=== PATIENT | male | born 1970 | race Hispanic/Latino ===

== ENCOUNTER 2025-02-07 11:40 | Inpatient (IN) | payer OTHER ==
[2025-02-07 12:53] LABS: #Basophils Less than 0.03 10x3/uL (0.0-0.2); #Eosinophils 0.05 10x3/uL (0.0-0.7); #Monocytes 0.46 10x3/uL (0.11-0.59); #Neutrophils 7.92 10x3/uL (1.40-6.50); %Basophils 0.1 % (0.0-1.0); %Eosinophils 0.5 % (0.0-10.0); %Lymphocytes 10.3 % (21.0-51.0); %Monocytes 4.9 % (0.0-10.0); %Neutrophils 83.7 % (42.0-75.0); Hematocrit 29.9 % (42.0-52.0); Hemoglobin 9.0 g/dL (14.0-18.0); Mean Corpuscular Hemoglobin 25.4 pg (27.0-31.0); Mean Corpuscular Volume 84.2 fL (78.0-98.0); Platelet Count 264 10x3/uL (130-400); Red Blood Cell (RBC) Count 3.55 mill/uL (4.70-6.10); White Blood Cell (WBC) Count 9.46 10x3/uL (4.8-10.8)
[2025-02-07 13:17] LABS: Lipase 67 U/L (8-78); Magnesium 2.3 mg/dL (1.6-2.6)
[2025-02-07 13:18] LABS: Acetaminophen Less than 10 mcg/mL (Less than 10); Salicylate Less than 8.0 mg/dL (Less than 8.0)
[2025-02-07 13:19] LABS: ALT (SGPT) 13 U/L (Less than 45); AST (SGOT) 20 U/L (11-34); Albumin 3.6 g/dL (3.1-4.5); Alkaline Phosphatase 75 U/L (40-110); Anion Gap 22 mmol/L (10-20); BUN (Urea Nitrogen) 49 mg/dL (8.4-25.7); Bilirubin, Total 0.3 mg/dL (0.3-1.2); CK (CPK) 197 U/L (30-200); Calc. Creatinine Clearance 0 mL/min (70-130); Calcium 7.8 mg/dL (7.8-10.44); Carbon Dioxide 12 mmol/L (22-29); Chloride 106 mmol/L (98-107); Globulin 2.4 g/dL (2.4-3.5); Glucose 139 mg/dL (70-105); Potassium 4.7 mmol/L (3.5-5.1); Sodium 135 mmol/L (136-145)
[2025-02-07] MEDS ORDERED: Senokot S 8.6-50 MG TAB PO PRN (14:08)
[2025-02-07] MEDS ORDERED: Ondansetron PF 4 MG/2 ML Vial IVP PRN (14:08)
[2025-02-07] MEDS ORDERED: Ketorolac Tromethamine 30 MG (1 mL) VIAL IVP PRN (14:08)
[2025-02-07] MEDS ORDERED: Guaifenesin DM 100-10/5 ML UDCUP PO PRN (14:08)
[2025-02-07] MEDS ORDERED: Acetaminophen 325 MG TAB PO PRN (14:08)
[2025-02-07] MEDS ORDERED: Electrolyte Replacement Protocol 1 EACH FS SCH (14:15)
[2025-02-07 16:58] LABS: INR-International Normal Ratio 1.1; PTT 29.9 sec (22.9-36.1); Prothrombin Time 14.2 sec (12.0-14.7)
[2025-02-07 17:22] LABS: Bilirubin, Direct 0.1 mg/dL (0.1-0.3); Magnesium 2.4 mg/dL (1.6-2.6)
[2025-02-07] MEDS: Cephalexin 250 MG CAP PO SCH (17:40)
[2025-02-07] MEDS: Furosemide 40 MG TAB PO SCH (20:59)
[2025-02-07] MEDS: Apixaban 5 MG TAB PO SCH (20:59)
[2025-02-07] MEDS: Famotidine/PF 20 mg/2ml Vial SLOW IVP SCH (20:59)
[2025-02-07] MEDS: Gabapentin 100 MG CAP PO SCH (20:59)
[2025-02-07] MEDS: Sacubitril 24MG/Valsartan 26 MG TAB PO SCH (21:00)
[2025-02-07 21:30] LABS: Cocaine Metabolite Screen Negative (Negative); THC/Cannabinoid Screen Negative (Negative); Tricyclic Screen Negative (Negative)
[2025-02-08 04:46] LABS: #Basophils Less than 0.03 10x3/uL (0.0-0.2); #Eosinophils 0.07 10x3/uL (0.0-0.7); #Monocytes 0.80 10x3/uL (0.11-0.59); #Neutrophils 5.85 10x3/uL (1.40-6.50); %Basophils 0.3 % (0.0-1.0); %Eosinophils 0.9 % (0.0-10.0); %Lymphocytes 9.7 % (21.0-51.0); %Monocytes 10.7 % (0.0-10.0); %Neutrophils 77.9 % (42.0-75.0); Hematocrit 31.0 % (42.0-52.0); Hemoglobin 9.5 g/dL (14.0-18.0); Mean Corpuscular Hemoglobin 25.5 pg (27.0-31.0); Mean Corpuscular Volume 83.1 fL (78.0-98.0); Platelet Count 262 10x3/uL (130-400); Red Blood Cell (RBC) Count 3.73 mill/uL (4.70-6.10); White Blood Cell (WBC) Count 7.51 10x3/uL (4.8-10.8)
[2025-02-08 05:08] LABS: ALT (SGPT) 27 U/L (Less than 45); AST (SGOT) 48 U/L (11-34); Albumin 3.7 g/dL (3.1-4.5); Alkaline Phosphatase 80 U/L (40-110); Anion Gap 16 mmol/L (10-20); BUN (Urea Nitrogen) 31 mg/dL (8.4-25.7); Bilirubin, Total 0.6 mg/dL (0.3-1.2); Calc. Creatinine Clearance 105 mL/min (70-130); Calcium 8.2 mg/dL (7.8-10.44); Carbon Dioxide 19 mmol/L (22-29); Cardiac Risk 2.9 (Less than 4.5); Chloride 111 mmol/L (98-107); Cholesterol 84 mg/dl (< 200 Desired); Globulin 2.7 g/dL (2.4-3.5); Glucose 135 mg/dL (70-105); HDL Cholesterol 29 mg/dL (>60 Neg Risk); LDL Cholesterol, Calculated 40 mg/dL; Potassium 4.6 mmol/L (3.5-5.1); Sodium 141 mmol/L (136-145); Triglycerides 77 mg/dL (Less than 150)
[2025-02-08] MEDS: Metoprolol Succinate XL 25 MG ER.TAB PO SCH (08:04)
[2025-02-08] MEDS: Folic Acid 1 MG TAB PO SCH (08:05)
[2025-02-08] MEDS: Enoxaparin 100 MG (1 mL) SYRINGE SC SCH (08:05)
[2025-02-08] MEDS: Dapagliflozin Propanediol 10 MG TAB PO SCH (08:05)
[2025-02-08] MEDS: Multivit, Therapeutic 1 TAB PO SCH (08:05)
[2025-02-08] MEDS: Famotidine/PF 20 mg/2ml Vial SLOW IVP SCH (08:06)
[2025-02-08] MEDS: Aspirin Chewable 81 MG TAB PO SCH (08:06)
[2025-02-08] MEDS ORDERED: Enoxaparin 40 MG (0.4 mL) SYRINGE SC SCH (09:00)
[2025-02-08] MEDS ORDERED: CATH FS PRN (14:15)
[2025-02-09 04:52] LABS: #Basophils 0.04 10x3/uL (0.0-0.2); #Eosinophils 0.18 10x3/uL (0.0-0.7); #Monocytes 0.78 10x3/uL (0.11-0.59); #Neutrophils 4.44 10x3/uL (1.40-6.50); %Basophils 0.6 % (0.0-1.0); %Eosinophils 2.7 % (0.0-10.0); %Lymphocytes 16.8 % (21.0-51.0); %Monocytes 11.9 % (0.0-10.0); %Neutrophils 67.7 % (42.0-75.0); Hematocrit 32.6 % (42.0-52.0); Hemoglobin 10.1 g/dL (14.0-18.0); Mean Corpuscular Hemoglobin 25.0 pg (27.0-31.0); Mean Corpuscular Volume 80.7 fL (78.0-98.0); Platelet Count 258 10x3/uL (130-400); Red Blood Cell (RBC) Count 4.04 mill/uL (4.70-6.10); White Blood Cell (WBC) Count 6.56 10x3/uL (4.8-10.8)
[2025-02-09 05:06] LABS: ALT (SGPT) 26 U/L (Less than 45); AST (SGOT) 36 U/L (11-34); Albumin 3.6 g/dL (3.1-4.5); Alkaline Phosphatase 89 U/L (40-110); Anion Gap 15 mmol/L (10-20); BUN (Urea Nitrogen) 17 mg/dL (8.4-25.7); Bilirubin, Total 0.6 mg/dL (0.3-1.2); Calc. Creatinine Clearance 131 mL/min (70-130); Calcium 8.7 mg/dL (7.8-10.44); Carbon Dioxide 24 mmol/L (22-29); Chloride 106 mmol/L (98-107); Globulin 3.0 g/dL (2.4-3.5); Glucose 143 mg/dL (70-105); Potassium 3.8 mmol/L (3.5-5.1); Sodium 141 mmol/L (136-145)
[2025-02-09 06:10] VITALS: BMI 30.3
[2025-02-09] MEDS ORDERED: Adenosine 6 mg (2 mL) VIAL ONE ×2 (08:46→11:05)
[2025-02-09] MEDS ORDERED: Lidocaine 1% (PF) 30 ML VIAL ONE ×2 (08:46→11:06)
[2025-02-09] MEDS ORDERED: EPINEPHrine 1 MG/10 ML Abboject SYRINGE ONE (08:46)
[2025-02-09] MEDS ORDERED: Heparin 10,000 UNITS/ 10 ML VIAL ONE ×2 (08:46→11:06)
[2025-02-09] MEDS ORDERED: PHENYLEPHRINE-NS 100 MCG/ML 10 ML SYRINGE ONE ×2 (08:47→11:07)
[2025-02-09] MEDS ORDERED: Nitroglycerin 50 MG/250 ML BOT 0 ML ONE (08:47)
[2025-02-09] MEDS ORDERED: Nitroglycerin 50 MG/250 ML BOT 250 ML ONE (11:06)
[2025-02-09] MEDS ORDERED: Iopamidol 370 76% 100 ML VIAL ONE (11:11)
[2025-02-09] MEDS ORDERED: Nitroglycerin 0.4 MG TAB (25 Tab Bottle) SL PRN (12:42)
[2025-02-09 14:45] VITALS: BMI 30.3
[2025-02-09 16:32] VITALS: BP 144/80; TEMP 97.5
[2025-02-10] MEDS ORDERED: Thiamine 100 MG TAB PO SCH (21:00)
== END 2025-02-09 18:30 | disposition home or self-care (01) | DRG 896 ==
LOC: ERS 11:40 → 2NO 14:14
PROVIDERS: ADMIT Hospitalist; ATTEND Internal Medicine
PROC: 4A023N7 Measurement of Cardiac Sampling and Pressure, Left Heart, Percutaneous Approach (ICD-10-PCS; principal; 2025-02-09)
PROC: B2151ZZ Fluoroscopy of Left Heart using Low Osmolar Contrast (ICD-10-PCS; 2025-02-09)
PROC: B2111ZZ Fluoroscopy of Multiple Coronary Arteries using Low Osmolar Contrast (ICD-10-PCS; 2025-02-09)
PROC: 3E033XZ Introduction of Vasopressor into Peripheral Vein, Percutaneous Approach (ICD-10-PCS; 2025-02-09)
DX: F10.129 Alcohol abuse with intoxication, unspecified (principal); G93.41 Metabolic encephalopathy; E87.20 Acidosis, unspecified; E87.29 Other acidosis; I13.0 Hypertensive heart and chronic kidney disease with heart failure and stage 1 through stage 4 chronic kidney disease, or unspecified chronic kidney disease; I50.32 Chronic diastolic (congestive) heart failure; N17.9 Acute kidney failure, unspecified; L03.116 Cellulitis of left lower limb; I42.9 Cardiomyopathy, unspecified; I48.91 Unspecified atrial fibrillation; E78.5 Hyperlipidemia, unspecified; E11.22 Type 2 diabetes mellitus with diabetic chronic kidney disease; N18.30 Chronic kidney disease, stage 3 unspecified; Y90.8 Blood alcohol level of 240 mg/100 ml or more; F32.9 Major depressive disorder, single episode, unspecified; Z90.49 Acquired absence of other specified parts of digestive tract; Z98.890 Other specified postprocedural states; Z86.73 Personal history of transient ischemic attack (TIA), and cerebral infarction without residual deficits; Z79.82 Long term (current) use of aspirin; Z79.899 Other long term (current) drug therapy; Z79.84 Long term (current) use of oral hypoglycemic drugs
CPT/HCPCS: 36415; 71045; 80053; 80061; 80306; 80307; 82248; 82550; 83036; 83605; 83690; 83735; 83880; 84100; 84443; 84484; 85025; 85610; 85730; 93005; 93306; 93458; 96361; 96374; 99152; C1769; C1894; J0153; J0165; J0461; J1644; J1650; J2060; J2250; J3010; J3411; J7030; Q9967

== ENCOUNTER 2025-03-02 18:11 | Inpatient (IN) | payer OTHER ==
[~2025-03-02 18:11] MED LIST: Iopamidol-370 76% 500 ML MDV (1 ML CHARGE) ONE
[2025-03-02 19:15] LABS: #Basophils Less than 0.03 10x3/uL (0.0-0.2); #Eosinophils 0.07 10x3/uL (0.0-0.7); #Monocytes 0.53 10x3/uL (0.11-0.59); #Neutrophils 8.50 10x3/uL (1.40-6.50); %Basophils 0.2 % (0.0-1.0); %Eosinophils 0.7 % (0.0-10.0); %Lymphocytes 7.8 % (21.0-51.0); %Monocytes 5.3 % (0.0-10.0); %Neutrophils 85.7 % (42.0-75.0); Hematocrit 26.5 % (42.0-52.0); Hemoglobin 7.9 g/dL (14.0-18.0); Mean Corpuscular Hemoglobin 23.9 pg (27.0-31.0); Mean Corpuscular Volume 80.3 fL (78.0-98.0); Platelet Count 302 10x3/uL (130-400); Red Blood Cell (RBC) Count 3.30 mill/uL (4.70-6.10); White Blood Cell (WBC) Count 9.92 10x3/uL (4.8-10.8)
[2025-03-02 19:33] LABS: Lipase 61 U/L (8-78)
[2025-03-02 19:35] LABS: ALT (SGPT) 17 U/L (Less than 45); AST (SGOT) 31 U/L (11-34); Acetaminophen Less than 10 mcg/mL (Less than 10); Albumin 3.1 g/dL (3.1-4.5); Alkaline Phosphatase 94 U/L (40-110); Anion Gap 22 mmol/L (10-20); BUN (Urea Nitrogen) 25 mg/dL (8.4-25.7); Bilirubin, Total 0.3 mg/dL (0.3-1.2); Calc. Creatinine Clearance 0 mL/min (70-130); Calcium 7.6 mg/dL (7.8-10.44); Carbon Dioxide 13 mmol/L (22-29); Chloride 102 mmol/L (98-107); Globulin 2.7 g/dL (2.4-3.5); Glucose 128 mg/dL (70-105); Potassium 4.1 mmol/L (3.5-5.1); Salicylate Less than 8.0 mg/dL (Less than 8.0); Sodium 133 mmol/L (136-145)
[2025-03-02 20:30] LABS: Actual Bicarbonate (HCO3v) 16.2 mEq/L (22-28); Base Excess -9.3 mEq/L (-2.0 to +3.0); Calcium, Ionized (venous) 1.08 mmol/L (1.16-1.32); Chloride (VBG) 100 mmol/L (98-106); Hematocrit-VBG 25 % (42.0-52.0); Hemoglobin (Hb) 8.6 g/dL (13.1-17.2); Potassium (VBG) 3.81 mmol/L (3.70-5.30); Sodium 132 mmol/L (133-146)
[2025-03-02 20:57] LABS: Bacteria/HPF None Seen HPF (None Seen); CAUTI Indications for Culture Alt mental st,lethar; Glucose, Urine (Dipstick) Greater than 1000 mg/dL (Negative); Leukocyte Negative Leu/uL (Negative); Protein, Urine (Dipstick) 10 mg/dL (Neg-Trace); RBC/HPF 0-3 HPF (0-3); Specific Gravity, Urine 1.014 (1.002-1.036); WBC/HPF 0-3 HPF (0-3)
[2025-03-02 20:58] LABS: Cocaine Metabolite Screen Negative (Negative); THC/Cannabinoid Screen Negative (Negative); Tricyclic Screen Negative (Negative); Urine Culture Reflex No No
[2025-03-03] MEDS ORDERED: Ondansetron PF 4 MG/2 ML Vial IVP PRN (00:16)
[2025-03-03] MEDS ORDERED: Calcium Carbonate 500 MG ChewTAB PO PRN (00:16)
[2025-03-03] MEDS ORDERED: Electrolyte Replacement Protocol 1 EACH FS SCH (00:30)
[2025-03-03] MEDS: FOLIC ACID IVP SCH (01:27)
[2025-03-03] MEDS: Vancomycin (BATCH) 2.5 GM in Premix 1 BAG IVPB SCH (01:27)
[2025-03-03] MEDS: PREFILLED IVP SCH (01:27)
[2025-03-03] MEDS ORDERED: Dextrose 50% Abboject 50 ML SYRINGE SLOW IVP PRN (02:37)
[2025-03-03] MEDS ORDERED: Glucagon 1 MG/ML KIT IM PRN (02:37)
[2025-03-03 03:53] LABS: #Basophils 0.03 10x3/uL (0.0-0.2); #Eosinophils 0.20 10x3/uL (0.0-0.7); #Monocytes 0.58 10x3/uL (0.11-0.59); #Neutrophils 5.64 10x3/uL (1.40-6.50); %Basophils 0.4 % (0.0-1.0); %Eosinophils 2.6 % (0.0-10.0); %Lymphocytes 14.3 % (21.0-51.0); %Monocytes 7.7 % (0.0-10.0); %Neutrophils 74.7 % (42.0-75.0); Hematocrit 29.5 % (42.0-52.0); Hemoglobin 8.6 g/dL (14.0-18.0); Mean Corpuscular Hemoglobin 23.9 pg (27.0-31.0); Mean Corpuscular Volume 81.9 fL (78.0-98.0); Platelet Count 307 10x3/uL (130-400); Red Blood Cell (RBC) Count 3.60 mill/uL (4.70-6.10); White Blood Cell (WBC) Count 7.55 10x3/uL (4.8-10.8)
[2025-03-03 04:27] LABS: ALT (SGPT) 16 U/L (Less than 45); AST (SGOT) 25 U/L (11-34); Albumin 3.2 g/dL (3.1-4.5); Alkaline Phosphatase 95 U/L (40-110); Anion Gap 19 mmol/L (10-20); BUN (Urea Nitrogen) 20 mg/dL (8.4-25.7); Bilirubin, Total 0.5 mg/dL (0.3-1.2); Calc. Creatinine Clearance 0 mL/min (70-130); Calcium 8.2 mg/dL (7.8-10.44); Carbon Dioxide 17 mmol/L (22-29); Chloride 108 mmol/L (98-107); Globulin 2.6 g/dL (2.4-3.5); Glucose 87 mg/dL (70-105); Potassium 4.5 mmol/L (3.5-5.1); Sodium 139 mmol/L (136-145)
[2025-03-03] MEDS: Multivit, Therapeutic 1 TAB PO SCH (08:11)
[2025-03-03] MEDS: Furosemide 40 MG TAB PO SCH (08:11)
[2025-03-03] MEDS: Aspirin Chewable 81 MG TAB PO SCH (08:11)
[2025-03-03] MEDS: Dapagliflozin Propanediol 10 MG TAB PO SCH (08:11)
[2025-03-03] MEDS: Folic Acid 1 MG TAB PO SCH (08:11)
[2025-03-03] MEDS: Sacubitril 24MG/Valsartan 26 MG TAB PO SCH (08:11)
[2025-03-03] MEDS: Thiamine 100 MG TAB PO SCH (08:12)
[2025-03-03] MEDS: Apixaban 5 MG TAB PO SCH (08:12)
[2025-03-03] MEDS: metFORMIN 850 MG TAB PO SCH (08:12)
[2025-03-03] MEDS: Metoprolol Succinate XL 25 MG ER.TAB PO SCH (08:12)
[2025-03-03] MEDS: Gabapentin 100 MG CAP PO SCH (08:12)
[2025-03-03] MEDS: Acetaminophen 325 MG TAB PO PRN (08:21)
[2025-03-03 14:29] LABS: Anion Gap 18 mmol/L (10-20); BUN (Urea Nitrogen) 18 mg/dL (8.4-25.7); Calc. Creatinine Clearance 130 mL/min (70-130); Calcium 8.6 mg/dL (7.8-10.44); Carbon Dioxide 22 mmol/L (22-29); Chloride 104 mmol/L (98-107); Glucose 137 mg/dL (70-105); Potassium 4.5 mmol/L (3.5-5.1); Sodium 139 mmol/L (136-145)
[2025-03-03 14:31] LABS: Magnesium 1.9 mg/dL (1.6-2.6)
[2025-03-03 14:52] VITALS: BMI 29.5
[2025-03-03] MEDS: Magnesium 2 GM/50 ML(in water) 2 GM in Premix 1 BAG IVPB SCH (21:05)
[2025-03-04 05:03] LABS: #Basophils 0.05 10x3/uL (0.0-0.2); #Eosinophils 0.35 10x3/uL (0.0-0.7); #Monocytes 0.56 10x3/uL (0.11-0.59); #Neutrophils 3.70 10x3/uL (1.40-6.50); %Basophils 0.9 % (0.0-1.0); %Eosinophils 6.2 % (0.0-10.0); %Lymphocytes 17.5 % (21.0-51.0); %Monocytes 9.9 % (0.0-10.0); %Neutrophils 65.1 % (42.0-75.0); Hematocrit 28.9 % (42.0-52.0); Hemoglobin 8.7 g/dL (14.0-18.0); Mean Corpuscular Hemoglobin 23.9 pg (27.0-31.0); Mean Corpuscular Volume 79.4 fL (78.0-98.0); Platelet Count 316 10x3/uL (130-400); Red Blood Cell (RBC) Count 3.64 mill/uL (4.70-6.10); White Blood Cell (WBC) Count 5.67 10x3/uL (4.8-10.8)
[2025-03-04 05:20] LABS: Anion Gap 12 mmol/L (10-20); BUN (Urea Nitrogen) 20 mg/dL (8.4-25.7); Calc. Creatinine Clearance 129 mL/min (70-130); Calcium 9.3 mg/dL (7.8-10.44); Carbon Dioxide 27 mmol/L (22-29); Chloride 105 mmol/L (98-107); Glucose 107 mg/dL (70-105); Magnesium 2.2 mg/dL (1.6-2.6); Potassium 4.3 mmol/L (3.5-5.1); Sodium 140 mmol/L (136-145)
[2025-03-05] MEDS: Furosemide 40 MG TAB PO SCH (09:18)
[2025-03-05 11:44] VITALS: BP 135/79; TEMP 97.6
== END 2025-03-05 14:29 | disposition home or self-care (01) | DRG 896 ==
LOC: ERS 18:11 → 2NO 03-03 00:01
PROVIDERS: ADMIT Student in an Organized Health Care Education/Training Program; ATTEND Internal Medicine
PROC: 3E03329 Introduction of Other Anti-infective into Peripheral Vein, Percutaneous Approach (ICD-10-PCS; principal; 2025-03-02)
PROC: 0T9B70Z Drainage of Bladder with Drainage Device, Via Natural or Artificial Opening (ICD-10-PCS; 2025-03-03)
DX: F10.129 Alcohol abuse with intoxication, unspecified (principal); G92.8 Other toxic encephalopathy; I21.A1 Myocardial infarction type 2; I50.22 Chronic systolic (congestive) heart failure; E87.20 Acidosis, unspecified; N17.9 Acute kidney failure, unspecified; E87.1 Hypo-osmolality and hyponatremia; I42.9 Cardiomyopathy, unspecified; L03.116 Cellulitis of left lower limb; E78.5 Hyperlipidemia, unspecified; E11.9 Type 2 diabetes mellitus without complications; E83.42 Hypomagnesemia; I48.0 Paroxysmal atrial fibrillation; Z66 Do not resuscitate; I11.0 Hypertensive heart disease with heart failure; G40.909 Epilepsy, unspecified, not intractable, without status epilepticus; E86.0 Dehydration; I25.10 Atherosclerotic heart disease of native coronary artery without angina pectoris; F32.A Depression, unspecified; S81.809A Unspecified open wound, unspecified lower leg, initial encounter; D63.8 Anemia in other chronic diseases classified elsewhere; Y90.9 Presence of alcohol in blood, level not specified; X30.XXXA Exposure to excessive natural heat, initial encounter; Z79.01 Long term (current) use of anticoagulants; Z97.8 Presence of other specified devices; Z95.5 Presence of coronary angioplasty implant and graft; Z79.82 Long term (current) use of aspirin; Z79.899 Other long term (current) drug therapy; Z86.73 Personal history of transient ischemic attack (TIA), and cerebral infarction without residual deficits; Z90.49 Acquired absence of other specified parts of digestive tract; Z79.84 Long term (current) use of oral hypoglycemic drugs; Z71.41 Alcohol abuse counseling and surveillance of alcoholic; Z90.89 Acquired absence of other organs
CPT/HCPCS: 36415; 36416; 70450; 71260; 72125; 74177; 80048; 80053; 80306; 80307; 81001; 82550; 82805; 83605; 83690; 83735; 83880; 84100; 84484; 85025; 87040; 87086; 93005; 96361; 96365; 96366; 96367; 96375; 97139; J2543; J3373; J3411; J3475; J7120; Q9967